=== PATIENT | female | born 1985 | race Caucasian/White ===

== ENCOUNTER 2016-10-03 12:18 | Emergency (ER) | payer OTHER ==
[~2016-10-03] VITALS: Ht 162.6 cm; Wt 45.0 kg
[~2016-10-03 12:18] MED LIST: ACET325T33 PO; ASPI-664 PO; FER325 PO; FERR240T9 PO; MECL12.574 PO; MECL25TA2 PO; OMEP20CA9 PO; ONDA4TAB35 PO; ONDA8TAB14 PO; RANI150T9 PO
[2016-10-03 12:36] VITALS: Ht 162.6 cm; Wt 45.0 kg
[2016-10-03] MEDS ORDERED: ONDANSETRON (ODT) 4 MG TAB ODT STA (14:13)
[2016-10-03 14:25] LABS: URINE BLOOD (Dip) POC 1+ (NEGATIVE)
[2016-10-03] MEDS ORDERED: ACET500C5 PO (15:18)
[2016-10-03] MEDS ORDERED: ONDA8TAB14 PO (15:18)
--- NOTE | 2016-10-03 15:20 | ERD ---
ER Documentation Chief Complaint Date/Time DATE: 10/03/16 TIME: 15:19 Chief Complaint Fever, vomiting and dizziness X 2 days. HPI This 31-year-old female presents with a one-day history of vomiting and tactile fevers. She has no measured temperature. She denies abdominal pain, urinary complaints the vomiting is nonbilious nonbloody. She denies foreign travel or sick contacts or suspect food. ROS All systems reviewed and are negative except as per history of present illness. Medications Home Meds Active Scripts Acetaminophen* (Tylophen*) 500 Mg Capsule, 1 CAP PO Q6H Y for PAIN AND OR ELEVATED TEMP, #15 CAP Prov:SUSY CAVANAUGH MD 10/03/16 Ondansetron (Ondansetron Odt) 8 Mg Tab.rapdis, 8 MG PO Q6H Y for NAUSEA AND/OR VOMITING, #8 TAB Prov:SUSY CAVANAUGH MD 10/03/16 Ondansetron (Ondansetron Odt) 8 Mg Tab.rapdis, 8 MG PO Q6H Y for NAUSEA AND/OR VOMITING, #10 TAB Prov:SUSY CAVANAUGH MD 07/08/16 Meclizine Hcl* (Antivert*) 12.5 Mg Tab, 12.5 MG PO Q6H Y for DIZZINESS, #20 TAB Prov:SUSY CAVANAUGH MD 07/08/16 Ferrous Sulfate* (Ferrous Sulfate*) 325 Mg Tabec, 325 MG PO TID, #90 TAB Prov:SUSY CAVANAUGH MD 07/08/16 Omeprazole* (Prilosec*) 20 Mg Capsule., 20 MG PO DAILY for 20 Days, CAP Prov:JOSE ALEJANDRO SELLERS NP 08/05/15 Meclizine Hcl* (Antivert*) 25 Mg Tablet, 25 MG PO Q6H Y for dizziness, #20 TAB Prov:URBAN FRANKLIN NP 08/02/15 Acetaminophen* (Tylenol*) 325 Mg Tablet, 2 TAB PO Q6 Y for PAIN AND OR ELEVATED TEMP, #20 TAB Prov:URBAN FRANKLIN NP 08/02/15 Ranitidine Hcl* (Zantac*) 150 Mg Tablet, 150 MG PO BID Y for PAIN, #30 TAB Prov:CHRIS BEVERLY PA-C 07/15/15 Ondansetron Hcl* (Zofran* ODT) 4 mg -ODT Tab.disper, 4 MG PO Q6 Y for NAUSEA AND /OR VOMITING, #10 TAB Prov:CHRIS BEVERLY ERIK 07/15/15 Reported Medications Ferrous Gluconate (Iron) 1 Tab Tablet, 1 TAB PO BID, TAB 07/15/15 Aspirin* (Aspirin* EC) 81 Mg Tablet.dr, 162 MG PO DAILY, TAB 04/03/15 Allergies Allergies: Coded Allergies: No Known Allergy (Unverified , 10/03/16) PMhx/Soc History of Surgery: No Anesthesia Reaction: No Hx Neurological Disorder: No Hx Respiratory Disorders: No Hx Cardiac Disorders: No Hx Psychiatric Problems: No Hx Miscellaneous Medical Probl: Yes (had received blood transfusion ) Hx Alcohol Use: No Hx Substance Use: No Hx Tobacco Use: No Smoking Status: Never smoker Physical Exam Vitals Vital Signs Date Time Temp Pulse Resp B/P Pulse Ox O2 Delivery O2 Flow Rate FiO2 10/03/16 12:36 99.7 105 20 105/64 100 Physical Exam Const: [] Alert, [id number] per Head: Atraumatic Eyes: Normal Conjunctiva ENT: Normal External Ears, Nose and Mouth. Neck: Full range of motion..~ No meningismus. Resp: Clear to auscultation bilaterally Cardio: Regular rate and rhythm, no murmurs Abd: Soft, non tender, non distended. Normal bowel sounds Skin: No petechiae or rashes Back: No midline or flank tenderness Ext: No cyanosis, or edema Neur: Awake and alert Psych: Normal Mood and Affect Results 24 hrs Laboratory Tests Test 10/03/16 14:23 Bedside Urine pH (LAB) 6.0 Bedside Urine Protein (LAB) 1+ Bedside Urine Glucose (UA) Negative Bedside Urine Ketones (LAB) 2+ Bedside Urine Blood 1+ Bedside Urine Nitrite (LAB) Negative Bedside Urine Leukocyte Esterase (L Negative Current Medications Medications (Trade) Dose Ordered Sig/Nadine Route PRN Reason Start Time Stop Time Status Last Admin Dose Admin Ondansetron HCl (Zofran Odt) 8 mg ONCE STAT ODT 10/03/16 14:13 10/03/16 14:15 DC 10/03/16 14:20 Procedures/MDM It is negative for leukocytes, glucose, hemoglobin and hCG is negative. Patient was given Zofran 8 mg by mouth. Patient is of vomiting of uncertain etiology for 1 day, likely viral gastroenteritis. Signs or symptoms currently not consistent with appendicitis, obstruction, acute abdomen, sepsis, other emergent causes of vomiting. She will discharged home the course of Zofran and further observation. The patient was stable with no new complaints during the ER course. Clinically, there is no current evidence to suggest meningitis, sepsis, acute abdomen, pneumonia, acute coronary syndrome, pulmonary embolism, or any other emergent condition appearing to require further evaluation or hospitalization. The patient should certainly return for any new or worsening symptoms per the aftercare instructions. They should otherwise follow-up with her primary care doctor for reevaluation this week. Departure Diagnosis: Primary Impression: Fever Fever type: unspecified Qualified Code: R50.9 - Fever, unspecified fever cause Additional Impression: Nausea and vomiting Vomiting type: unspecified Vomiting Intractability: unspecified Qualified Code: R11.2 - Nausea and vomiting, intractability of vomiting not specified, unspecified vomiting type Condition: Stable Patient Instructions: Nausea and Vomiting-Adult, Fever Control (Adult) Additional Instructions: Suspect viral illness which may last 1-3 days. Recheck for new or worsening symptoms with primary care doctor. Drink clear fluids and bland diet. SUSY CAVANAUGH MD Oct 03, 2016 15:19
[2016-10-03 15:41] VITALS: BP 98/59; PULSE 84; RESP 18; TEMP 98.7
== END 2016-10-03 15:33 | disposition home or self-care (01) ==
LOC: FTE 12:18
DX: R50.9 Fever, unspecified (principal); R11.2 Nausea with vomiting, unspecified; Z79.82 Long term (current) use of aspirin
CPT/HCPCS: 81003; Z7502; Z7610; 99283

== ENCOUNTER 2016-10-06 08:38 | Emergency (ER) | payer OTHER ==
[~2016-10-06] VITALS: Wt 46.8 kg
[~2016-10-06 08:38] MED LIST changes: +ACET500C5 PO
--- NOTE | 2016-10-06 09:37 | ERD ---
ER Documentation Chief Complaint Date/Time DATE: 10/06/16 TIME: 09:32 Chief Complaint ap with diarrhea since yesterday HPI 31-year-old female complaining of diarrhea since yesterday, and abdominal pain this morning. Patient was seen here 2 days ago for fever and vomiting. She was told that she has a viral infection. Patient stated that she was doing well yesterday, but she ate her [place] of food last night at dinner. She had one episode of diarrhea last night, and when this episode this morning. Abdominal pain is in the epigastric region, not constant, nonradiating. Denies vomiting or fever. Denies dysuria. Patient is leaving for [facility] in 1 week, she is concerned that her symptom has not resolved. ROS All systems reviewed and are negative except as per history of present illness. Medications Home Meds Active Scripts Acetaminophen* (Tylophen*) 500 Mg Capsule, 1 CAP PO Q6H Y for PAIN AND OR ELEVATED TEMP, #15 CAP Prov:SUSY CAVANAUGH MD 10/03/16 Ondansetron (Ondansetron Odt) 8 Mg Tab.rapdis, 8 MG PO Q6H Y for NAUSEA AND/OR VOMITING, #8 TAB Prov:SUSY CAVANAUGH MD 10/03/16 Ondansetron (Ondansetron Odt) 8 Mg Tab.rapdis, 8 MG PO Q6H Y for NAUSEA AND/OR VOMITING, #10 TAB Prov:SUSY CAVANAUGH MD 07/08/16 Meclizine Hcl* (Antivert*) 12.5 Mg Tab, 12.5 MG PO Q6H Y for DIZZINESS, #20 TAB Prov:SUSY CAVANAUGH MD 07/08/16 Ferrous Sulfate* (Ferrous Sulfate*) 325 Mg Tabec, 325 MG PO TID, #90 TAB Prov:SUSY CAVANAUGH MD 07/08/16 Omeprazole* (Prilosec*) 20 Mg Capsule., 20 MG PO DAILY for 20 Days, CAP Prov:JOSE ALEJANDRO SELLERS NP 08/05/15 Meclizine Hcl* (Antivert*) 25 Mg Tablet, 25 MG PO Q6H Y for dizziness, #20 TAB Prov:URBAN FRANKLIN NP 1/25/16 Acetaminophen* (Tylenol*) 325 Mg Tablet, 2 TAB PO Q6 Y for PAIN AND OR ELEVATED TEMP, #20 TAB Prov:URBAN FRANKLIN NP 08/02/15 Ranitidine Hcl* (Zantac*) 150 Mg Tablet, 150 MG PO BID Y for PAIN, #30 TAB Prov:CHRIS BEVERLY PA-C 07/15/15 Ondansetron Hcl* (Zofran* ODT) 4 mg -ODT Tab.disper, 4 MG PO Q6 Y for NAUSEA AND /OR VOMITING, #10 TAB Prov:CHRIS BEVERYL PA-C 07/15/15 Reported Medications Ferrous Gluconate (Iron) 1 Tab Tablet, 1 TAB PO BID, TAB 07/15/15 Aspirin* (Aspirin* EC) 81 Mg Tablet.dr, 162 MG PO DAILY, TAB 04/03/15 Allergies Allergies: Coded Allergies: No Known Allergy (Unverified , 10/03/16) PMhx/Soc History of Surgery: No Anesthesia Reaction: No Hx Neurological Disorder: No Hx Respiratory Disorders: No Hx Cardiac Disorders: No Hx Psychiatric Problems: No Hx Miscellaneous Medical Probl: Yes (had received blood transfusion ) Hx Alcohol Use: No Hx Substance Use: No Hx Tobacco Use: No Physical Exam Vitals Vital Signs Date Time Temp Pulse Resp B/P Pulse Ox O2 Delivery O2 Flow Rate FiO2 10/06/16 08:46 98.1 62 20 118/62 99 Physical Exam General impression: Well-developed, well-nourished. Alert, oriented, in no acute distress Head: Normocephalic, atraumatic. Eyes: PERRL, EOM normal. Sclerae are normal. Conjunctiva not injected. ENT: External canals patent. TM'sclear. Nasal mucosa, oral mucosa and oropharynx are normal. Neck: Supple, nontender. No lymphadenopathy. No nuchal rigidity. Respiration: Normal respiratory effort. Lungs clear to auscultate bilaterally. No wheezes, rales or rhonchi. Cardiovascular: Regular rate and rhythm. No murmurs or extra heart sounds. Abdomen: Abdomen normal to inspection. Mild epigastric tenderness, no other tenderness. No rebound or guarding. No masses or organomegaly. Bowel sounds normal. Back: Normal to inspection. No midline spine tenderness. No CVA tenderness. Extremities: Extremities normal to inspection, nontender. ROM normal. Neuro: Mental status normal, speech normal. DANCE TEACHER grossly intact. Skin: Normal turgor. No rash or lesions. Psych: Normal mood and affect. Procedures/MDM Patient is afebrile, has mild epigastric tenderness on palpation. I doubt acute appendicitis, cholecystitis or other acute abdomen. Patient's symptoms is consistent with that of viral gastroenteritis. Patient does not have any active vomiting, is able to maintain by mouth fluid intake. Patient appears well, stable for discharge and outpatient management. Patient is advised to eat a bland diet for next 2-4 days. Medical decision making shared with patient and family. Education provided to patient and family. Patient and family expressed understanding of the plan. Medications on discharge: Non-. Follow-up: Primary care provider in 2-3 days or return to ED if worse. Departure Diagnosis: Primary Impression: Gastroenteritis Condition: Good Patient Instructions: Gastroenteritis, Viral (6Y-Adult) Referrals: [facility] YOU HAVE RECEIVED A MEDICAL SCREENING EXAM AND THE RESULTS INDICATE THAT YOU DO NOT HAVE A CONDITION THAT REQUIRES URGENT TREATMENT IN THE EMERGENCY DEPARTMENT. FURTHER EVALUATION AND TREATMENT OF YOUR CONDITION CAN WAIT UNTIL YOU ARE SEEN IN YOUR DOCTORS OFFICE WITHIN THE NEXT 1-2 DAYS. IT IS YOUR RESPONSIBILITY TO MAKE AN APPOINTMENT FOR FOLOW-UP CARE. IF YOU HAVE A PRIMARY DOCTOR --you should call your primary doctor and schedule an appointment IF YOU DO NOT HAVE A PRIMARY DOCTOR YOU CAN CALL OUR PHYSICIAN REFERRAL HOTLINE AT IF YOU CAN NOT AFFORD TO SEE A PHYSICIAN YOU CAN CHOSE FROM THE FOLLOWING [facility] [address] [facility]. [facility] [address] [facility] [address] [facility] [address] [facility]. [facility] [place] [address] [facility]. [facility] [address] Additional Instructions: Call your primary care doctor TOMORROW for an appointment during the next 2-3 days.See the doctor sooner or return here if your condition worsens before your appointment time. ALONA LANTIGUA NP Oct 06, 2016 09:37
[2016-10-06 09:42] VITALS: BP 112/60; PULSE 88; RESP 20; TEMP 97.9
== END 2016-10-06 09:43 | disposition home or self-care (01) ==
LOC: FTE 08:38
DX: K52.9 Noninfective gastroenteritis and colitis, unspecified (principal); Z79.82 Long term (current) use of aspirin
CPT/HCPCS: 99282

== ENCOUNTER 2016-12-28 21:23 | Emergency (ER) | payer OTHER ==
[~2016-12-28] VITALS: Ht 162.6 cm; Wt 41.0 kg
[2016-12-28 21:27] VITALS: Ht 162.6 cm; Wt 41.0 kg
--- NOTE | 2016-12-28 21:49 | ERA ---
ER Documentation Chief Complaint Date/Time DATE: 12/28/16 TIME: 21:49 Chief Complaint vomiting x 1 day HPI The patient is a 31-year-old female, presenting to the ER because of vomiting multiple times today, mostly mucus, diarrhea 2. She had spicy chicken 2 days ago. She has similar symptoms previously, denies weakness, syncope, near syncope, neck pain, chest pain, abdominal pain, dysuria, recent traveling. She does not smoke nor drink Past medical history: Anemia, gastritis Past surgical history: None ROS All systems reviewed and are negative except as per history of present illness. Medications Home Meds Active Scripts Ondansetron (Ondansetron Odt) 4 Mg Tab.rapdis, 4 MG PO Q6H Y for NAUSEA AND/OR VOMITING, #10 TAB Prov:BEATRIS STERLING MD 12/29/16 Loperamide Hcl* (Imodium*) 2 Mg Capsule, 2 MG PO .AFTER EA LOOSE BM Y for DIARRHEA, #10 TAB Prov:BEATRIS STERLING MD 12/29/16 Discontinued Reported Medications Ferrous Gluconate (Iron) 1 Tab Tablet, 1 TAB PO BID, TAB 07/15/15 Aspirin* (Aspirin* EC) 81 Mg Tablet.dr, 162 MG PO DAILY, TAB 04/03/15 Discontinued Scripts Acetaminophen* (Tylophen*) 500 Mg Capsule, 1 CAP PO Q6H Y for PAIN AND OR ELEVATED TEMP, #15 CAP Prov:SUSY CAVANAUGH MD 10/03/16 Ondansetron (Ondansetron Odt) 8 Mg Tab.rapdis, 8 MG PO Q6H Y for NAUSEA AND/OR VOMITING, #8 TAB Prov:SUSY CAVANAUGH MD 10/03/16 Ondansetron (Ondansetron Odt) 8 Mg Tab.rapdis, 8 MG PO Q6H Y for NAUSEA AND/OR VOMITING, #10 TAB Prov:SUSY CAVANAUGH MD 07/08/16 Meclizine Hcl* (Antivert*) 12.5 Mg Tab, 12.5 MG PO Q6H Y for DIZZINESS, #20 TAB Prov:SUSY CAVANAUGH MD 07/08/16 Ferrous Sulfate* (Ferrous Sulfate*) 325 Mg Tabec, 325 MG PO TID, #90 TAB Prov:SUSY CAVANAUGH MD 07/08/16 Omeprazole* (Prilosec*) 20 Mg Capsule.dr, 20 MG PO DAILY for 20 Days, CAP Prov:JOSE ALEJANDRO SELLERS NP 08/05/15 Meclizine Hcl* (Antivert*) 25 Mg Tablet, 25 MG PO Q6H Y for dizziness, #20 TAB Prov:URBAN FRANKLIN NP 08/02/15 Acetaminophen* (Tylenol*) 325 Mg Tablet, 2 TAB PO Q6 Y for PAIN AND OR ELEVATED TEMP, #20 TAB Prov:URBAN FRANKLIN NP 08/02/15 Ranitidine Hcl* (Zantac*) 150 Mg Tablet, 150 MG PO BID Y for PAIN, #30 TAB Prov:CHRIS BEVERLY PA-C 07/15/15 Ondansetron Hcl* (Zofran* ODT) 4 mg -ODT Tab.disper, 4 MG PO Q6 Y for NAUSEA AND /OR VOMITING, #10 TAB Prov:CHRIS BEVERLY PA-C 07/15/15 Allergies Allergies: Coded Allergies: No Known Allergy (Unverified , 12/28/16) PMhx/Soc History of Surgery: No Anesthesia Reaction: No Hx Neurological Disorder: No Hx Respiratory Disorders: No Hx Cardiac Disorders: No Hx Psychiatric Problems: No Hx Miscellaneous Medical Probl: Yes (had received blood transfusion ) Hx Alcohol Use: No Hx Substance Use: No Hx Tobacco Use: No Physical Exam Vitals Vital Signs Date Time Temp Pulse Resp B/P Pulse Ox O2 Delivery O2 Flow Rate FiO2 12/28/16 21:27 98.9 90 20 107/56 100 Physical Exam Const: No acute distress. Head: Atraumatic. Eyes: Normal Conjunctiva. ENT: Normal External Ears, Nose and Mouth. Neck: Full range of motion. No meningismus. Resp: Clear to auscultation bilaterally. Cardio: Regular rate and rhythm. Abd: Soft, non distended, normal bowel sounds, non tender. Skin: No petechiae or rashes. Back: No midline or flank tenderness. Ext: No cyanosis, or edema. Neur: Awake and alert. No focal deficit Psych: Normal Mood and Affect. Result Diagram: 12/28/16220912/28/162209 Results 24 hrs Laboratory Tests Test 12/28/16 22:10 12/28/16 23:01 White Blood Count 13.410^3/ul Red Blood Count 4.6510^6/ul Hemoglobin 7.8g/dl Hematocrit 28.9% Mean Corpuscular Volume 62.2fl Mean Corpuscular Hemoglobin 16.8pg Mean Corpuscular Hemoglobin Concent 27.0g/dl Red Cell Distribution Width 21.1% Platelet Count 43202^3/UL Mean Platelet Volume 9.8fl Neutrophils % 90.5% Lymphocytes % 4.5% Monocytes % 4.5% Eosinophils % 0.0% Basophils % 0.1% Nucleated Red Blood Cells % 0.0/100WBC Neutrophils # 12.110^3/ul Lymphocytes # 0.610^3/ul Monocytes # 0.610^3/ul Eosinophils # 0.010^3/ul Basophils # 0.010^3/ul Nucleated Red Blood Cells # 0.010^3/ul Sodium Level 144mmol/L Potassium Level 3.3mmol/L Chloride Level 102mmol/L Carbon Dioxide Level 21mmol/L Anion Gap 24 Blood Urea Nitrogen 17mg/dl Creatinine 0.66mg/dl Glucose Level 183mg/dl Calcium Level 10.6mg/dl Magnesium Level 2.0mg/dl Total Bilirubin 0.0mg/dl Direct Bilirubin 0.00mg/dl Indirect Bilirubin 0.0mg/dl Aspartate Amino Transf (AST/SGOT) 27IU/L Alanine Aminotransferase (ALT/SGPT) 25IU/L Alkaline Phosphatase 57IU/L Total Protein 10.0g/dl Albumin 5.7g/dl Globulin 4.30g/dl Albumin/Globulin Ratio 1.32 Lipase 37U/L Bedside Urine pH (LAB) 5.5 Bedside Urine Protein (LAB) 2+ Bedside Urine Glucose (UA) Negative Bedside Urine Ketones (LAB) 1+ Bedside Urine Blood Trace-lysed Bedside Urine Nitrite (LAB) Negative Bedside Urine Leukocyte Esterase (L Negative Current Medications Medications (Trade) Dose Ordered Sig/Nadine Route PRN Reason Start Time Stop Time Status Last Admin Dose Admin Sodium Chloride (NS) 1,000 ml @ 1,000 mls/hr Q1H STAT IV 12/28/16 21:54 12/28/16 22:53 DC 12/28/16 22:18 Ondansetron HCl (Zofran Inj) 4 mg ONCE STAT IV 12/28/16 21:54 12/28/16 21:57 DC 12/28/16 22:17 Loperamide HCl 4 mg 4 mg ONCE ONCE PO 12/28/16 22:00 12/28/16 22:01 DC 12/28/16 22:17 Sodium Chloride (NS) 1,000 ml @ 1,000 mls/hr Q1H ONCE IV 12/29/16 00:00 12/29/16 00:59 12/28/16 23:52 Ondansetron HCl (Zofran Inj) 4 mg ONCE STAT IV 12/28/16 23:36 12/28/16 23:38 DC 12/28/16 23:52 Potassium Chloride (Klor-Con 20) 20 meq ONCE STAT PO 12/28/16 23:36 12/28/16 23:38 DC 12/28/16 23:52 Procedures/[place] [id number] Radiology Main Line: [phone] DIAGNOSTIC IMAGING REPORT Patient: DELFINA KANG : 1985 Age: 31 Sex: F MR #: [id number] DOS: 12/28/16 0000 Ordering MD: BEATRIS STERLING MD Location: E/R Room/Bed: PROCEDURE: XR Chest. CLINICAL INDICATION: Vomiting. TECHNIQUE: AP portable views of the chest were obtained. COMPARISON: 04/02/2015 FINDINGS: There is mild cardiomegaly. There is mild prominence of the central pulmonary vasculature. The lungs are hyperexpanded without focal consolidation. There is no evidence of pleural effusion or pneumothorax. IMPRESSION: 1. No evidence of acute cardiopulmonary disease. 2. Stable mild cardiomegaly. RPTAT: HGAS .Trell Carolina MD, Date Time Electronically viewed and signed by .Trell Carolina MD, on 12/29/2016 00: 03 .S/ CC: BEATRIS STERLING MD MEDICAL MAKING DECISION: The patient is a 31-year-old female, presenting with vomiting diarrhea, acute dehydration, acute hypokalemia. She was treated with 2 L normal saline for acute dehydration, Zofran 4 mg IV 2 for nausea, Imodium 4 mg p.o. for diarrhea and potassium chloride 20 mEq p.o. for hypokalemia with good response. The differential diagnoses considered include but are not limited to gastroenteritis, food poisoning, cholelithiasis, cholecystitis, cystitis, pancreatitis, hepatitis, gastritis, peptic ulcer disease, gastric ulcer, appendicitis, diverticulitis, cholangitis, choledocholithiasis, partial small bowel obstruction. Departure Diagnosis: Primary Impression: Vomiting and diarrhea Additional Impressions: Dehydration Hypokalemia Anemia Condition: Good Comments She was discharged with Zofran ODT and Imodium I discussed the findings with the patient. I advised the patient to follow-up with the primary physician in about 1-2 days, sooner if needed and return if any concern. BEATRIS STERLING MD Dec 28, 2016 21:49
[2016-12-28] MEDS ORDERED: SOD CHLORIDE 0.9% 1,000 ML IV STA (21:54)
[2016-12-28] MEDS ORDERED: ONDANSETRON 4 MG INJ IV STA ×2 (21:54→23:36)
[2016-12-28] MEDS ORDERED: LOPERAMIDE 2 MG CAP PO ONE (22:00)
[2016-12-28 22:49] LABS: ADD SCAN DIFF NO
[2016-12-28 22:51] LABS: ABNORMAL IP MESSAGE 1; BASOPHILS % 0.1 % (0.0-2.0); HEMATOCRIT 28.9 % (37.0-47.0); HEMOGLOBIN 7.8 g/dl (12.0-16.0); LYMPHOCYTES # 0.6 10^3/ul (0.8-2.9); LYMPHOCYTES % 4.5 % (15.0-51.0); MEAN CORPUSCULAR HEMOGLOBIN 16.8 pg (29.0-33.0); MEAN CORPUSCULAR VOLUME 62.2 fl (82.0-101.0); MEAN PLATELET VOLUME 9.8 fl (7.4-10.4); MONOCYTE # 0.6 10^3/ul (0.3-0.9); MONOCYTES % 4.5 % (0.0-11.0); NEUTROPHIL # 12.1 10^3/ul (1.6-7.5); NEUTROPHILS % 90.5 % (39.0-77.0); PLATELET COUNT 571 10^3/UL (140-415); RED BLOOD COUNT 4.65 10^6/ul (4.20-5.40); RED CELL DISTRIBUTION WIDTH 21.1 % (11.5-14.5); WHITE BLOOD COUNT 13.4 10^3/ul (4.8-10.8)
[2016-12-28 22:59] LABS: URINE BLOOD (Dip) POC Trace-lysed (NEGATIVE)
[2016-12-28 23:12] LABS: ALBUMIN 5.7 g/dl (3.3-4.9); ALBUMIN/GLOBULIN RATIO 1.32; CALCIUM 10.6 mg/dl (8.4-10.2); CREATININE 0.66 mg/dl (0.44-1.00); POTASSIUM 3.3 mmol/L (3.5-5.1)
[2016-12-28] MEDS ORDERED: POTASSIUM CHLORIDE (SR) 20 MEQ TAB PO STA (23:36)
[2016-12-29] MEDS ORDERED: SOD CHLORIDE 0.9% 1,000 ML IV ONE
--- NOTE | 2016-12-29 00:04 | RADRPT ---
PROCEDURE: XR Chest. CLINICAL INDICATION: Vomiting. TECHNIQUE: AP portable views of the chest were obtained. COMPARISON: 04/02/2015 FINDINGS: There is mild cardiomegaly. There is mild prominence of the central pulmonary vasculature. The kavon gs are hyperexpanded without focal consolidation. There is no evidence of pleural effusion or pneum othorax. IMPRESSION: 1. No evidence of acute cardiopulmonary disease. 2. Stable mild cardiomegaly. RPTAT: HGAS .Trell Carolina MD, MD Date Time Electronically viewed and signed by .Trell Carolina MD, MD on 12/29/2016 00:03 .S/
[2016-12-29] MEDS ORDERED: LOPE2CAP PO (00:30)
[2016-12-29] MEDS ORDERED: ONDA4TAB14 PO (00:30)
[2016-12-29] MEDS ORDERED: ONDANSETRON (ODT) 4 MG TAB ODT ONE (01:40)
[2016-12-29] MEDS ORDERED: PANTOPRAZOLE (EC) 40 MG TAB PO ONE (01:40)
[2016-12-29] MEDS ORDERED: PROCHLORPERAZINE 10 MG INJ IM ONE (03:00)
[2016-12-29 03:19] VITALS: BP 98/55; PULSE 68; RESP 16
== END 2016-12-29 03:22 | disposition home or self-care (01) ==
LOC: E/R 21:23
DX: R11.10 Vomiting, unspecified (principal); R19.7 Diarrhea, unspecified; E86.0 Dehydration; E87.6 Hypokalemia; D64.9 Anemia, unspecified; Z79.82 Long term (current) use of aspirin
CPT/HCPCS: 36415; 71010; 80053; 81003; 83690; 83735; 85025; 96372; 96374; 96376; J0780; J2405; J7030; Z7502; Z7610